=== PATIENT | male | born 1975 | race American Indian/Alaskan Native ===

== ENCOUNTER 2018-06-18 16:26 | Emergency (ER) | payer SELFPAY ==
[2018-06-18 16:38] VITALS: BMI 20.8
[2018-06-18] MEDS ORDERED: Etomidate 20 mg/10ml Inj IVP STA (16:48)
--- NOTE | 2018-06-18 16:48 | ED PDOC ---
Arrival/HPI - General Chief Complaint: Dental Pain Time Seen by Provider: 06/18/18 16:35 Historian: Patient - History of Present Illness Time/Duration: Prior to Arrival Symptom Onset: Sudden Symptom Course: Unchanged Quality: Aching Severity Level: Moderate Activities at Onset: Rest Associated Symptoms (Text): 06/18/18 16:47 Patient reports that he yawned just prior to arrival dislocating his jaw. He has had multiple similar episodes previously. He last ate at approximately 11 AM today. Past Medical History - Provider Review Nursing Documentation Reviewed: Yes - Travel History Have you recently traveled outside [place] w/in the past 3 mons?: No - Infectious Disease Hx of Infectious Diseases: None - Musculoskeletal/Rheumatological Other/Comment: TMJ - Psychiatric Hx Substance Use: No - Surgical History Hx Orthopedic Surgery: Yes Other/Comment: R shoulder. Back surgery - Anesthesia Hx Anesthesia: Yes Hx Anesthesia Reactions: Yes (reaction to propofol) Hx Malignant Hyperthermia: No Family/Social History - Physician Review Nursing Documentation Reviewed: Yes Family/Social History: Unknown Family HX Smoking Status: Never Smoked Hx Alcohol Use: No Hx Substance Use: No Allergies/Home Meds Allergies/Adverse Reactions: Allergies propofol Allergy (Verified 06/18/18 16:38) SHORTNESS OF BREATH Home Medications: Home Meds Medication Instructions Recorded Confirmed No Known Home Med 06/18/18 06/18/18 Review of Systems - Physician Review All systems were reviewed & negative as marked: Yes Physical Exam Vital Signs Temp Pulse Resp BP Pulse Ox 06/18/18 16:39 97.6 F 89 18 111/75 97 Temperature: Afebrile Blood Pressure: Normal Pulse: Regular Respiratory Rate: Normal Appearance: Positive for: Well-Appearing, Non-Toxic, Uncomfortable Pain Distress: Mild Mental Status: Positive for: Alert and Oriented X 3 - Systems Exam Head: Present: Atraumatic, Normocephalic Pupils: Present: PERRL Extroacular Muscles: Present: EOMI Conjunctiva: Present: Normal Ears: Present: NORMAL TM, Normal Canal. No: Erythema, TM Bulging Mouth: Present: Moist Mucous Membranes, Other (Obvious jaw dislocation.) Pharnyx: No: ERYTHEMA, EXUDATE, TONSILS ENLARGED Respiratory/Chest: Present: Clear to Auscultation, Good Air Exchange. No: Respiratory Distress, Accessory Muscle Use Cardiovascular: Present: Regular Rate and Rhythm, Normal S1, S2. No: Murmurs Upper Extremity: Present: Normal Inspection. No: Cyanosis, Edema Lower Extremity: Present: Normal Inspection. No: Edema Neurological: Present: GCS=15, CN II-XII Intact, Speech Normal Skin: Present: Warm, Dry, Normal Color. No: Rashes Psychiatric: Present: Alert, Oriented x 3, Normal Insight, Normal Concentration Medical Decision Making ED Course and Treatment: 06/18/18 18:00 Orthopedic reduction. After appropriate conscious sedation the patient's mandible was reduced manually by myself. Post procedure the patient is awake alert and the mandible has been reduced. He is able to open and close his mouth without difficulty. He is speaking clearly. He is able to tolerate p.o. fluids. ED Procedural Sedation - Pre Anesthesia Assessment Chief Complaint: Dental Pain Last Known Meal: 11:00 Past Medical History: Medications Reviewed, Allergies Reviewed, Record Review Previous Surgies: Reviewed Family History/Social History: Reviewed - Physical Exam/Review of Systems Vital Signs Reviewed: Yes Cardiovascular: Regular Rate and Rhythm, Normal S1, S2, Peripheal Pulses Present Respiratory/Chest: Clear to Auscultation, Good Air Exchange Neurological: GCS=15, CN II-XII Intact, Speech Normal, Motor Func Grossly Intact, Normal Sensory Function, Normal Cerebellar Funct Abdomen: Normal Bowel Sounds Mental Status: Alert and Oriented X 3 - Pre-Procedure Airway Assessment History of difficult intubation or surgical airway (i.e trach):: No Inability to extend neck:: No Mouth opening less than two finger breadth:: Yes Diagnosis of sleep apnea:: No Less than three finger breadth to hyoid bone:: No ASA Criteria: 1 - Healthy, normal. 2 - Mild systemic disease (No functional limitations, mildline obesity, DM withot complications, Hypertention). 3 - Severe systemic disease (Some functional limitation, stable angina, morbid obesity, controlled COPD/Asthma/CHF). 4 - Sever systemic disease constant threat to life (Unstable angina, active symptoms of COPD/Asthma, CHF/Hypertension. 5 - Moribund ASA Clarification: ASA I Mallampati (airway): Class IV Nursing ED Procedural Sedation: ER Moderate Sedation Start: 06/18/18 17:10 Freq: Status: Active Protocol: Document 06/18/18 17:10 MA (Rec: 06/18/18 17:21 [place] [facility] [id number] Mod Sedation Time Out Process Time Out Process Patient identification (MR# and name Yes from ID Band) Procedure verified Yes Consent read aloud and agreed upon Yes Correct Site/Side marked and visibe to Yes team after prepping and draping (unless exempt) Implants, special equipment and x-rays Yes available Correct position Yes Correct Team Yes All team members are in agreement Yes Pre-Procedure Mod Sedation Pre-Procedure Checklist Patient's identity verified by Patient stating name Patient stating [facility] bracelet Pre Procedure Checklist BP monitor Signed consent Ambu bag Patient IV Patient ID Oxygen Airway Code Cart End Tidal CO2 Suction set up Pre Anesthesia Assessment Chief Complaint Dental Pain Moderate Sedation VS & Pain Ax Level of Consciousness Level of Consciousness 1 = Alert Temperature Temperature (97.6 F-99.6 F) 98.2 F Pulse Pulse Rate (60-90 beats/min) 80 Respirations Respiratory Rate (12-24 breaths/min) 20 Oxygen Delivery Method Room Air SPO2 (95-100) 95 End Tidal CO2 43 Blood Pressure Blood Pressure (100/60-150/90 mm Hg) 134/66 Intra-Procedure Vital Signs Vital Signs and Pain Assessment Time 17:05 Blood Pressure (100/60-150/90 mm Hg) 157/76 Pulse Rate (60-90 beats/min) 83 Respiratory Rate (12-24 breaths/min) 21 End Tidal CO2 43 Level of Consciousness 3 = Frequently Drowsy, Easy to Arouse Intra-Procedure Vital Signs #2 Vital Signs and Pain Assessment Time 17:15 Blood Pressure (100/60-150/90 mm Hg) 106/72 Pulse Rate (60-90 beats/min) 61 Respiratory Rate (12-24 breaths/min) 19 End Tidal CO2 45 Level of Consciousness 1 = Alert Intra-Procedure Vital Signs #3 Vital Signs and Pain Assessment End Tidal CO2 46 Intra-Procedure Vital Signs #4 Vital Signs and Pain Assessment End Tidal CO2 46 Edit Result 06/18/18 17:10 MA (Rec: 06/18/18 17:34 [place] [facility] [id number] Intra-Procedure Vital Signs #3 Vital Signs and Pain Assessment Time 17:30 Blood Pressure (100/60-150/90 mm Hg) 114/74 Pulse Rate (60-90 beats/min) 66 Respiratory Rate (12-24 breaths/min) 16 End Tidal CO2 41 Level of Consciousness 1 = Alert Created 06/18/18 17:10 MA (Rec: 06/18/18 17:10 [place] [facility] [id number] - Intra-Procedure (Medications) Medications Given: Discontinued Medications Etomidate (Amidate) 15 mg IVP STAT STA Stop: 06/18/18 16:49 Last Admin: 06/18/18 17:09 Dose: 7.5 ml IVP Administration Document 06/18/18 17:09 MA (Rec: 06/18/18 17:09 [place] [facility] [id number] Charges for Administration # of IVP Administrations 1 Physician Pushed Medication: Yes - Post-Procedure Post Procedure Note: Postprocedure patient is awake alert cooperative and not sedated. Disposition/Present on Arrival - Present on Arrival Any Indicators Present on Arrival: No History of DVT/PE: No History of Uncontrolled Diabetes: No Urinary Catheter: No History of Decub. Ulcer: No History Surgical Site Infection Following: None - Disposition Have Diagnosis and Disposition been Completed?: Yes Diagnosis: Dislocated mandible Disposition: HOME/ ROUTINE Disposition Time: 18:20 Patient Plan: Discharge Condition: IMPROVED Discharge Instructions (ExitCare): Moderate Sedation in Adults, Dislocated Jaw Additional Instructions: Ice. Tylenol or Advil as directed on bottle as needed. Follow-up with PMD. Follow-up in ER as needed. Forms: [employer] (Spanish), WORK NOTE
[2018-06-18 17:34] VITALS: RESP 16
[2018-06-18 18:10] VITALS: PULSE 64
[2018-06-18 19:04] VITALS: BP 118/65; TEMP 98; O2SAT 96
== END 2018-06-18 19:04 | disposition home or self-care (01) ==
LOC: EDSEX → ED 16:26
DX: S03.00XA Dislocation of jaw, unspecified side, initial encounter (principal); X58.XXXA Exposure to other specified factors, initial encounter